=== PATIENT | male | born 1940 ===

== ENCOUNTER → 2018-09-16 | Outpatient (CLI) | payer OTHER | END | disposition home or self-care (01) | LOC: WOUND MED 09-09 08:45 | DX: L97.322 Non-pressure chronic ulcer of left ankle with fat layer exposed (principal) | CPT/HCPCS: 11042; G0463; A4554; A4930; A6216; A6242 ==

== ENCOUNTER → 2018-09-23 | Outpatient (CLI) | payer OTHER | END | disposition home or self-care (01) | LOC: WOUND MED 07:00 | DX: L97.322 Non-pressure chronic ulcer of left ankle with fat layer exposed (principal) | CPT/HCPCS: 11042; A4554; A4930; A6216; A6220; A6242 ==

== ENCOUNTER → 2018-09-30 | Outpatient (CLI) | payer OTHER | END | disposition home or self-care (01) | LOC: WOUND MED 09:17 | DX: L97.322 Non-pressure chronic ulcer of left ankle with fat layer exposed (principal) | CPT/HCPCS: 11042; A4554; A4930; A6212; A6216; A6220; A6242 ==

== ENCOUNTER → 2018-10-08 | Outpatient (CLI) | payer OTHER | END | disposition home or self-care (01) | LOC: WOUND MED 09:37 | DX: L97.322 Non-pressure chronic ulcer of left ankle with fat layer exposed (principal) | CPT/HCPCS: 11042; A4554; A4930; A6216; A6220; A6242 ==

== ENCOUNTER → 2018-10-15 | Outpatient (CLI) | payer OTHER | END | disposition home or self-care (01) | LOC: WOUND MED 09:23 | DX: L97.322 Non-pressure chronic ulcer of left ankle with fat layer exposed (principal) | CPT/HCPCS: 11042; A4554; A4930; A6216; A6242; A6266 ==

== ENCOUNTER → 2018-10-22 | Outpatient (CLI) | payer OTHER | END | disposition home or self-care (01) | LOC: WOUND MED 08:26 | DX: L97.322 Non-pressure chronic ulcer of left ankle with fat layer exposed (principal) | CPT/HCPCS: 11042; A4554; A4930; A6216; A6220; A6242 ==

== ENCOUNTER → 2018-10-29 | Outpatient (CLI) | payer OTHER | END | disposition home or self-care (01) | LOC: WOUND MED 09:35 | DX: L97.322 Non-pressure chronic ulcer of left ankle with fat layer exposed (principal) | CPT/HCPCS: 11042; A4554; A4930; A6196; A6216; A6219 ==

== ENCOUNTER → 2018-11-05 | Outpatient (CLI) | payer OTHER | END | disposition home or self-care (01) | LOC: WOUND MED 07:33 | DX: L97.322 Non-pressure chronic ulcer of left ankle with fat layer exposed (principal) | CPT/HCPCS: 11042; A4554; A4930; A6196; A6216; A6219 ==

== ENCOUNTER → 2018-11-12 | Outpatient (CLI) | payer OTHER | END | disposition home or self-care (01) | LOC: WOUND MED 08:55 | DX: L97.322 Non-pressure chronic ulcer of left ankle with fat layer exposed (principal) | CPT/HCPCS: 11042; A4554; A4930; A6021; A6216; A6219 ==

== ENCOUNTER 2018-11-19 09:54 | Outpatient (CLI) | payer OTHER | END 2018-11-19 10:15 | disposition home or self-care (01) | LOC: WOUND MED 09:54 | DX: L97.322 Non-pressure chronic ulcer of left ankle with fat layer exposed (principal) | CPT/HCPCS: 11042; A4554; A4930; A6216; A6266 ==

== ENCOUNTER 2018-11-26 08:38 | Outpatient (CLI) | payer OTHER | END 2018-11-26 11:27 | disposition home or self-care (01) | LOC: WOUND MED 08:38 | DX: L97.322 Non-pressure chronic ulcer of left ankle with fat layer exposed (principal) | CPT/HCPCS: 11042; A4554; A4930; A6021; A6216; A6219 ==

== ENCOUNTER 2018-12-03 07:37 | Outpatient (CLI) | payer OTHER | END 2018-12-03 08:00 | disposition home or self-care (01) | LOC: WOUND MED 07:37 | DX: L97.322 Non-pressure chronic ulcer of left ankle with fat layer exposed (principal) | CPT/HCPCS: 11042; A4554; A4930; A6212; A6216; A6219 ==

== ENCOUNTER 2018-12-10 09:05 | Outpatient (CLI) | payer OTHER | END 2018-12-10 10:00 | disposition home or self-care (01) | LOC: WOUND MED 09:05 | DX: L97.322 Non-pressure chronic ulcer of left ankle with fat layer exposed (principal) | CPT/HCPCS: 11042; A4554; A4930; A6196; A6216; A6219 ==

== ENCOUNTER 2018-12-17 07:49 | Outpatient (CLI) | payer OTHER | END 2018-12-17 08:30 | disposition home or self-care (01) | LOC: WOUND MED 07:49 → EDBD 07:49 → WOUND MED 08:30 | DX: L97.322 Non-pressure chronic ulcer of left ankle with fat layer exposed (principal) | CPT/HCPCS: 11042; A4554; A4930; A6216; A6219 ==

== ENCOUNTER 2018-12-24 08:09 | Outpatient (CLI) | payer OTHER | END 2018-12-24 10:00 | disposition home or self-care (01) | LOC: EDBD 08:09 → WOUND MED 08:09 | DX: L97.322 Non-pressure chronic ulcer of left ankle with fat layer exposed (principal) | CPT/HCPCS: 11042; A4554; A4930; A6196; A6216; A6220 ==

== ENCOUNTER 2018-12-31 07:16 | Outpatient (CLI) | payer OTHER | END 2018-12-31 08:00 | disposition home or self-care (01) | LOC: EDBD 07:16 → WOUND MED 07:16 | DX: L97.322 Non-pressure chronic ulcer of left ankle with fat layer exposed (principal) | CPT/HCPCS: 11042; A4554; A4930; A6196; A6216; A6220; A6266 ==

== ENCOUNTER 2019-01-07 07:32 | Outpatient (CLI) | payer OTHER | END 2019-01-07 08:00 | disposition home or self-care (01) | LOC: EDBD 07:32 → WOUND MED 07:32 | DX: L97.322 Non-pressure chronic ulcer of left ankle with fat layer exposed (principal) | CPT/HCPCS: 11042; A4554; A4930; A6196; A6216; A6266 ==

== ENCOUNTER 2019-01-21 07:57 | Outpatient (CLI) | payer OTHER | END 2019-01-21 10:00 | disposition home or self-care (01) | LOC: EDBD 07:57 → WOUND MED 07:57 | DX: L97.322 Non-pressure chronic ulcer of left ankle with fat layer exposed (principal) | CPT/HCPCS: 11042; A4554; A4930; A6216; A6219 ==

== ENCOUNTER 2019-01-28 08:55 | Outpatient (CLI) | payer OTHER | END 2019-01-28 10:00 | disposition home or self-care (01) | LOC: WOUND MED 08:55 → EDBD 08:55 → WOUND MED 10:00 | DX: L97.322 Non-pressure chronic ulcer of left ankle with fat layer exposed (principal) | CPT/HCPCS: 11042; A4554; A4930; A6216; A6219 ==

== ENCOUNTER 2019-02-04 07:26 | Outpatient (CLI) | payer OTHER | END 2019-02-04 08:30 | disposition home or self-care (01) | LOC: WOUND MED 07:26 → EDBD 07:26 → WOUND MED 07:45 | DX: L97.322 Non-pressure chronic ulcer of left ankle with fat layer exposed (principal) | CPT/HCPCS: 11042; A4554; A4930; A6196; A6216; A6242; A6266 ==

== ENCOUNTER 2019-02-11 07:41 | Outpatient (CLI) | payer OTHER | END 2019-02-11 11:42 | disposition home or self-care (01) | LOC: EDBD 07:41 → WOUND MED 07:41 | DX: L97.322 Non-pressure chronic ulcer of left ankle with fat layer exposed (principal) | CPT/HCPCS: 11042; A4554; A4930; A6196; A6216 ==

== ENCOUNTER 2019-02-18 07:28 | Outpatient (CLI) | payer OTHER | END 2019-02-18 08:45 | disposition home or self-care (01) | LOC: WOUND MED 07:28 | DX: L97.322 Non-pressure chronic ulcer of left ankle with fat layer exposed (principal) | CPT/HCPCS: 97602; A4554; A4930; A6196; A6216; A6220 ==

== ENCOUNTER 2019-03-04 07:24 | Outpatient (CLI) | payer OTHER | END 2019-03-04 08:10 | disposition home or self-care (01) | LOC: WOUND MED 07:24 | DX: L97.322 Non-pressure chronic ulcer of left ankle with fat layer exposed (principal) | CPT/HCPCS: 11042; A4554; A4930; A6216; A6219 ==

== ENCOUNTER 2019-03-11 07:23 | Outpatient (CLI) | payer OTHER | END 2019-03-11 08:15 | disposition home or self-care (01) | LOC: WOUND MED 07:23 | DX: L97.322 Non-pressure chronic ulcer of left ankle with fat layer exposed (principal) | CPT/HCPCS: 11042; A4554; A4930; A6216; A6220 ==